=== PATIENT | male | born 1975 | race Caucasian/White ===

== ENCOUNTER 2017-02-21 18:45 | Inpatient (IN) | payer OTHER ==
--- NOTE | ~2017-02-21 | HP ---
History And Physical [id number] [facility] [place]. [address] NAME: KEITH HOFFMANN JR : 71 STATUS : ADM IN [facility]#: [id number] AGE: 41 ADM/REG DATE : 02/21/17 MR#: [id number] REPORT SERV DATE: 02/22/17 DICTATED BY: GOPI GONZALEZ II DATE: 02/22/17 REPORT STATUS : Draft TRANSCRIBED BY: OSMANI DATE: 02/22/17 DATE OF ADMISSION: 02/21/2017 CHIEF COMPLAINT AND ADMISSION DIAGNOSIS: Severe thoracic pain radiating into the right ribcage and into the abdominal region with severe numbness and tingling and paresthesias into the abdomen and right greater than left lower extremity radiculopathy. 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 He is in excellent physical condition. He reports severe onset of pain radiating into the thoracic region into the right ribcage and into the abdomen. He was extremely uncomfortable and was offered admission to the hospital last week. He ultimately tried to go home and did so in hopes of awaiting surgery. However his pain worsened and ultimately was admitted for pain control and likely surgical intervention. His MRI had shown a cord and nerve root compression at T8-T9. This was consistent with his complaints. The MRI report also indicated some edema at T11 and T12. I overall did not feel this was likely consistent with infection. He has been having no constitutional symptoms. PAST MEDICAL HISTORY: Overall he is quite healthy. He denies any chest pain or shortness of breath. His review of systems overall is noncontributory. MEDICATIONS: Please see the MAR. SOCIAL HISTORY: He is and again works at [employer]. He does report drinking 2 to 3 beers a day. PHYSICAL EXAMINATION: GENERAL: Examination reveals a gentleman in mild distress. He is awake, alert, and oriented. NECK: His neck is supple. CHEST: Reveals no stridor on inspiration or expiration. CARDIOVASCULAR: Regular rate and rhythm when I palpate the radial pulse. ABDOMEN: The abdomen is soft. THORAX: He does not have tenderness in the thoracic area. He has no scars, deformities, or masses in the thoracic area. NEUROLOGIC: He does have some hyperreflexia more so on the right. He has 3 beats of clonus on the right with only 1 to 2 beats on the left. This is clearly asymmetry. Sensory-jain, he does have some sensory paresthesias in the T8-T9 distribution. DATA: MRI shows a large disk herniation at T8-T9 with cord and nerve root compression. IMPRESSION AND PLAN: T8-T9 HNP with myeloradiculopathy. He will be admitted for pain control and likely surgical intervention given his severe pain. History And Physical [address] [address] NAME: KEITH HOFFMANN JR : 71 STATUS : ADM IN [facility]#: [id number] AGE: 41 ADM/REG DATE : 02/21/17 MR#: [id number] REPORT SERV DATE: 02/22/17 DICTATED BY: GOPI GONZALEZ II DATE: 02/22/17 REPORT STATUS : Draft TRANSCRIBED BY: OSMANI DATE: 02/22/17 We will also obtain a CBC and a sedimentation rate given his MRI reading. Overall clinically his symptoms did not match up with an infectious process. We will also give him a steroid. Of course, if his pain does calm down, we would consider additional nonoperative care but given his severe pain and the MRI, I suspect a facetectomy and stabilization will be required. JAYDA/OSMANI Gopi Gonzalez II, M.D. / [id number] CC: Gopi Gonzalez II, M.D.
--- NOTE | ~2017-02-21 | DS ---
Discharge Summary [facility] [address] [place]. [address] NAME: KEITH HOFFMANN JR : 71 STATUS : DIS IN PAT#: [id number] AGE: 41 ADM/REG DATE : 02/21/17 MR#: [id number] REPORT SERV DATE: 03/05/17 DICTATED BY: GOPI MESA II DATE: 03/04/17 REPORT STATUS : Draft TRANSCRIBED BY: OSMANI DATE: 03/04/17 Data Collection from hospitalization DISCHARGE DIAGNOSES: 1. 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 2. Thoracic myeloradiculopathy. CONSULTATIONS: None. PROCEDURES PERFORMED: Right complete facetectomy, T8-T9; posterolateral arthrodesis, T8-T9; use of posterior nonsegmental instrumentation, T8-T9; use of local autograft, allograft substitute, and bone morphogenic protein; use of microscope and stereotactic spinal imaging on 02/23/2017. PATHOLOGY: Thoracic spine repair - fragmented bone cartilage and soft tissue. No evidence was seen of an infectious or neoplastic process. MEDICATIONS: Valium 5 mg four times a day as needed, MS Contin 30 mg every 12 hours, and Roxicodone 15-30 mg every four to six hours as needed. CONDITION AT DISCHARGE: Stable. DISPOSITION: The patient was discharged home on a regular diet with activities as instructed. He would follow up with me as instructed. 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 He is in excellent physical condition. He reported having the severe onset of pain radiating into the thoracic region, into the right rib cage, and into the abdomen. He was extremely uncomfortable. We offered admission to the hospital the week prior to this admission. He ultimately tried to go home and did so in hopes of awaiting surgery. However, his pain worsened and ultimately it was felt that he would need to be admitted for pain control and surgical intervention. MRI had shown a cord and nerve root compression at T8-T9, which was consistent with his complaints. MRI also indicated some edema at T11 and T12. Overall, I did not feel that this was likely consistent with infection. Treatment options were discussed and it was elected to proceed with surgical intervention. He was admitted to the hospital at this time for further evaluation and treatment. Upon admission, he was going to be given a steroids. Plans were being made to proceed with surgical intervention. On 02/23/2017, the patient was taken to the operating room where he underwent the above-mentioned procedure. He tolerated this well, and there were no complications. Discharge planning was performed. On 02/24/2017, he was alert and cooperative. He had no focal deficits. Discharge instructions were given. Due to his improved and stable condition, he was discharged home with the above-stated instructions. Information collected by: Marilyn Camacho I submit the above information as my discharge summary. Discharge Summary [place] [id number] [facility] [place]. [address] NAME: KEITH HOFFMANN JR : 71 STATUS : DIS IN PAT#: [id number] AGE: 41 ADM/REG DATE : 02/21/17 MR#: [id number] REPORT SERV DATE: 03/05/17 DICTATED BY: GOPI MESA II DATE: 03/04/17 REPORT STATUS : Draft TRANSCRIBED BY: OSMANI DATE: 03/04/17 TG/OSMANI Gopi Mesa II, M.D. / [id number] CC: Gopi Mesa II, M.D.
--- NOTE | ~2017-02-21 | OP ---
Record Of Operation [facility] [address] [place]. [address] NAME: KEITH HOFFMANN JR : 71 STATUS : DIS IN PAT#: [id number] AGE: 41 ADM/REG DATE : 02/21/17 MR#: [id number] REPORT SERV DATE: 02/27/17 DICTATED BY: GOPI MESA II DATE: 02/27/17 REPORT STATUS : Draft TRANSCRIBED BY: MODL DATE: 02/27/17 DATE OF PROCEDURE: 02/23/2017 PREOPERATIVE DIAGNOSES: 1. 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 2. Thoracic myeloradiculopathy. POSTOPERATIVE DIAGNOSES: 1. 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 2. Thoracic myeloradiculopathy. PROCEDURE: 1. Right complete facetectomy, T8-T9. 2. Posterolateral arthrodesis T8-T9. 3. Use of posterior nonsegmental instrumentation, T8-T9. 4. Use of local autograft, allograft substitute, and bone morphogenic protein. 5. Use of the microscope and stereotactic spinal imaging. SURGEON: Gopi Mesa M.D. FLUIDS: 1250 mL LR. EBL: 60 mL. DRAINS: One drain. COMPLICATIONS: None. ANTIBIOTIC: Preoperatively. IMPLANTS: Alphatec. 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 He has been having severe thoracic pain radiating from the back and around his ribcage and also causing diffuse numbness and tingling in his legs. We discussed the pros and cons of surgery. We also discussed the fact that surgery had risks, which include, but are not limited to infection, abscess, small chance of stroke and . We also discussed a small chance of paralysis. DESCRIPTION OF PROCEDURE: After informed consent was obtained, Keith was brought to the operating room at his request and general anesthesia achieved. He was placed in the prone position. The back was prepped and draped in a sterile fashion. At this point, we placed a stereotactic spinal pin into the iliac crest. The MRI, which showed herniation, had used C2 as the basis for the numbering system. At this point, we felt that we should use likely not only that system but also counting up to the bottom. This unfortunately took a long amount of time, but we felt it was necessary to ensure the proper level identification. Record Of Operation [facility] [address] [place]. [address] NAME: KEITH HOFFMANN JR : 71 STATUS : DIS IN PAT#: [id number] AGE: 41 ADM/REG DATE : 02/21/17 MR#: [id number] REPORT SERV DATE: 02/27/17 DICTATED BY: GOPI MESA II DATE: 02/27/17 REPORT STATUS : Draft TRANSCRIBED BY: OSMANI DATE: 02/27/17 Ultimately, we were confident of our level after having placed spinal needles at several areas in the spine to help with the counting. At this point, the incision was made just to the right of the midline and the minimally invasive quadrant retractor was placed at T8-T9. The microscope was brought into place. Under microscopic visualization, the facetectomy was performed. I felt this was indicated secondary to needing an aggressive removal of the facet to decompress the nerve root as well as from the standpoint that we were of course unable to retract on the cord. At this point, a [id number] decompression was achieved. The exiting nerve root did appear to have some edema about it. The herniation was a large broad-based protrusion without an obvious extrusion. The area was now found to be well decompressed including the spinal cord and the exiting nerve roots. The area was now irrigated. Next, the pedicle screws were placed in the T8 and T9 using stereotactic guidance. The repeat CT scan confirmed acceptable placement of the implants. The ysabel was well assembled and final tightening performed. Next, the transverse processes of T8 and T9 were decorticated and the allograft substitute, local autograft, and a very small amount of bone morphogenic protein were placed along the decorticated surfaces. A deep drain was placed followed by standard closure. The patient was extubated and transferred to PACU in stable condition. JAYDA/OSMANI Gopi Mesa II, M.D. / [id number] CC: Gopi Mesa II, M.D.
[2017-02-21 21:35] LABS: BASOPHILS 0.1 %; BASOPHILS ABSOLUTE 0.01 10/3/uL (0.0-0.16); EOSINOPHILS 0.7 %; EOSINOPHILS ABSOLUTE 0.06 10/3/uL (0.0-0.53); HEMATOCRIT 41.4 % (40.0-51.0); HEMOGLOBIN 14.3 g/dL (13.6-17.8); IMMATURE GRANULOCYTES 0.5 %; IMMATURE GRANULOCYTES ABSOLUTE 0.04 10/3/uL (0.0-0.11); LYMPHOCYTES 13.1 %; LYMPHOCYTES ABSOLUTE 1.05 10/3/uL (0.67-4.30); MEAN CORPUS HGB CONC 34.5 g/dL (32.0-36.0); MEAN CORPUSCULAR HEMOGLOB 31.3 pg (26.0-34.0); MEAN CORPUSCULAR VOLUME 90.6 fL (80-100); MEAN PLATELET VOLUME 9.7 fL (9.2-13.0); MONOCYTES 10.3 %; MONOCYTES ABSOLUTE 0.83 10/3/uL (0.21-1.20); NEUTROPHILS 75.3 %; NEUTROPHILS ABSOLUTE 6.04 10/3/uL (2.02-8.40); PLATELET COUNT 271 10/3/uL (150-400); RBC DISTRIBUTION WIDTH 12.9 % (12.0-16.0); RED CELL COUNT 4.57 10/6/uL (4.7-6.1)
[2017-02-21 21:37] LABS: MANUAL DIFF NO %
[2017-02-21 21:49] LABS: ALBUMIN 3.6 G/DL (3.5-5.0); ALKALINE PHOSPHATASE 66 U/L (45-117); BUN (BLOOD UREA NITROGEN) 10 MG/DL (6-23); C-REACTIVE PROTEIN 33.6 MG/L (<8.0); CALCIUM, SERUM 9.3 MG/DL (8.5-10.4); CHLORIDE, SERUM 103 MMOL/L (96-112); CO2 (CARBON DIOXIDE) 30 MMOL/L (24-34); GFR AFRICAN AMERICAN 106 ML/MIN (>=60); GFR NON AFRICAN AMERICAN 92 ML/MIN (>=60); GLOBULIN 3.5 G/DL (2.5-4.1); GLUCOSE, SERUM 81 MG/DL (60-99); POTASSIUM, SERUM 3.9 MMOL/L (3.5-5.3); SGOT(AST) 17 U/L (5-40); SGPT(ALT) 25 U/L (5-65); SODIUM, SERUM 140 MMOL/L (135-148); TOTAL BILIRUBIN 0.3 MG/DL (0-1.2); TOTAL PROTEIN 7.1 G/DL (6.0-8.5)
[2017-02-21 22:34] LABS: SED RATE 30 MM/HR (0-15)
[2017-02-22] MEDS ORDERED: MOBIC15 MG PO (14:11)
[2017-02-22] MEDS ORDERED: LIOR10 PO (14:11)
[2017-02-22] MEDS ORDERED: NORCO1 TAB PO (14:12)
[2017-02-22] MEDS ORDERED: ADVIL PO (14:12)
[2017-02-24] MEDS ORDERED: V5 PO (08:58)
[2017-02-24] MEDS ORDERED: MSCONTIN PO (08:59)
[2017-02-24] MEDS ORDERED: ROXICODONE15 MG PO (08:59)
== END 2017-02-24 11:11 | disposition home or self-care (01) | DRG 460 ==
LOC: 3SO 18:45
PROVIDERS: Orthopaedic Surgery
PROC: 0RG6071 Fusion of Thoracic Vertebral Joint with Autologous Tissue Substitute, Posterior Approach, Posterior Column, Open Approach (ICD-10-PCS; principal; 2017-02-21)
PROC: 4A11X4G Monitoring of Peripheral Nervous Electrical Activity, Intraoperative, External Approach (ICD-10-PCS; 2017-02-21)
DX: M51.14 Intervertebral disc disorders with radiculopathy, thoracic region (principal); M51.04 Intervertebral disc disorders with myelopathy, thoracic region
CPT/HCPCS: 80053; 82962; 85025; 85652; 86140; 87641; 88304; 88311; A9270-GY; C1713; C1768; J0690; J1170; J2250; J2405; J2710; J3010; J3370